=== PATIENT | female | born 1950 | race Caucasian/White ===

== ENCOUNTER 2016-11-08 17:23 | Inpatient (IN) | payer OTHER, MEDICARE ==
[~2016-11-08] VITALS: Ht 160 cm; Wt 74.1 kg
[~2016-11-08 17:23] MED LIST: FEXO180 PO; MONT10TA2 PO; MUCI600T PO; OXYC-360 PO
[2016-11-08 17:28] VITALS: BP 140/87; PULSE 124; RESP 26; TEMP 99.1; O2SAT 89
[2016-11-08 17:43] VITALS: BP 147/72; PULSE 111; PULSE 112; RESP 20; RESP 28; TEMP 100.1; O2SAT 94
[2016-11-08] MEDS ORDERED: cefTRIAXone INJ 2,000 MG in SODIUM CHLORIDE 0.9% INJ 100 ML IV STA (18:05)
[2016-11-08] MEDS ORDERED: AZITHROMYCIN INJ 500 MG in SODIUM CHLOR 0.9% 250 ML INJ 250 ML IV STA (18:05)
[2016-11-08] MEDS ORDERED: ACETAMINOPHEN 325 MG TAB PO ONE (18:15)
[2016-11-08] MEDS: RESP: ALBUTEROL 2.5 MG/IPRATROPIUM 0.5 MG NEB (SCH) INH ×2 (18:16→18:17)
[2016-11-08 18:20] LABS: BASOPHIL # 0.1 TH/MM3 (0-0.2); BASOPHIL % 0.7 % (0.0-2.0); HEMATOCRIT 41.4 % (35.0-46.0); LYMPH % 5.2 % (9.0-44.0); MEAN CELL VOLUME 86.7 FL (80.0-100.0); MEAN CORPUSCULAR HGB CONC 33.4 % (32.0-36.0); MONO % 5.4 % (0.0-8.0); NEUT % 88.7 % (16.0-70.0); PLATELET COUNT 205 TH/MM3 (150-450); RED BLOOD COUNT 4.78 MIL/MM3 (4.00-5.30); RED CELL DISTRIBUTION WIDTH 12.8 % (11.6-17.2); WHITE BLOOD COUNT 19.1 TH/MM3 (4.0-11.0)
--- NOTE | 2016-11-08 18:20 | PD ---
HPI Chief Complaint: Respiratory Symptoms Time Seen by Provider: 18:00 Travel History International Travel<30 days: No Contact w/Intl Traveler<30days: No Traveled to known affect area: No History of Present Illness HPI Patient is a 66-year-old female with history of COPD, bronchiectasis, presents to emergency room with complaints of shortness of breath. Patient reports that she has not been feeling well since last night, reports that she has had a dry, nonproductive cough, reports that she has been feeling weak and has not been able to get out of bed due to his weakness. Denies fevers at home although her temperature today was 100.1. Patient reports that she does not use home O2, reports that she does feel better with oxygen while in the emergency room. Patient denies any sick contacts. Patient reports that her influenza vaccine is not up to date. Patient reports that she was a past smoker, currently doesn' t smoke. Patient denies chest pain at this time. PFSH Past Medical History Arthritis: Yes Asthma: Yes Heart Rhythm Problems: Yes Cancer: No Cardiovascular Problems: No (HX MURMUR) COPD: Yes Diminished Hearing: No Endocrine: No Genitourinary: Yes (INCONTINENCE) Immune Disorder: No Musculoskeletal: Yes Neurologic: Yes Psychiatric: No Reproductive: Yes Respiratory: Yes Migraines: Yes (HX) Influenza Vaccination: No Past Surgical History Abdominal Surgery: Yes (ADHESION REMOVAL, CYST REMOVAL) Hysterectomy: Yes Other Surgery: Yes (BUNIONECTOMY) Social History Alcohol Use: No Tobacco Use: No (QUIT 05/2016) Substance Use: No Allergies-Medications (Allergen,Severity, Reaction): Coded Allergies: Darvon (Verified Allergy, Severe, Itching; NAUSEA AND VOMITING, 11/08/16) Demerol (Verified Allergy, Severe, Confusion; NAUSEA AND VOMITING, 11/08/16) Lortab (Verified Allergy, Severe, 11/08/16) Lyrica (Unverified Allergy, Severe, swelling, 11/08/16) hands, feet, and throat Prednisone (Unverified Allergy, Severe, swelling, 11/08/16) hands, feet, and throat swelled Reported Meds & Prescriptions Reported Meds & Active Scripts Active Reported Percocet (Oxycodone/Acetaminophen) 5 Mg/325 Mg Tab 1-2 Tab PO Q4HPRN FOR PAIN Mucinex (Guaifenesin) 600 Mg Tabcr 800 Mg PO DAILY Hanna (Fexofenadine HCl) 180 Mg Tab 180 Mg PO DAILY Singulair (Montelukast Sodium) 10 Mg Tab 10 Mg PO HS Review of Systems General / Constitutional: Positive: Fever, Chills Eyes: No: Visual changes HENT: No: Headaches Cardiovascular: No: Chest Pain or Discomfort Respiratory: Positive: Cough, Shortness of Breath, Wheezing Gastrointestinal: No: Abdominal Pain Genitourinary: No: Dysuria Musculoskeletal: No: Pain Skin: No Rash Neurologic: Positive: Weakness Psychiatric: No: Depression Endocrine: No: Polydipsia Hematologic/Lymphatic: No: Easy Bruising Physical Exam Narrative GENERAL: Moderate distress SKIN: Focused skin assessment warm/dry. HEAD: Atraumatic. Normocephalic. EYES: Pupils equal and round. No scleral icterus. No injection or drainage. ENT: No nasal bleeding or discharge. Mucous membranes pink and moist. NECK: Trachea midline. No JVD. CARDIOVASCULAR: Tachycardia. No murmur appreciated. RESPIRATORY: No accessory muscle. patient with scattered wheezing to bilateral lungs GASTROINTESTINAL: Abdomen soft, non-tender, nondistended. Hepatic and splenic margins not palpable. MUSCULOSKELETAL: No obvious deformities. No clubbing. No cyanosis. No edema. NEUROLOGICAL: Awake and alert. No obvious cranial nerve deficits. Motor grossly within normal limits. Normal speech. PSYCHIATRIC: Appropriate mood and affect; insight and judgment normal. Data Data Last Documented VS Vital Signs Date Time Temp Pulse Resp B/P Pulse Ox O2 Delivery O2 Flow Rate FiO2 11/08/16 19:02 95 Nasal Cannula 1 11/08/16 19:02 99.2 111 18 139/63 Orders Electrocardiogram (11/08/16 18:05) Complete Blood Count With Diff (11/08/16 18:05) Comprehensive Metabolic Panel (11/08/16 18:05) Prothrombin Time / Inr (Pt) (11/08/16 18:05) Act Partial Throm Time (Ptt) (11/08/16 18:05) Lactic Acid Sepsis Protocol (11/08/16 18:05) Magnesium (Mg) (11/08/16 18:05) Lipase (11/08/16 18:05) Ckmb (Isoenzyme) Profile (11/08/16 18:05) Troponin I (11/08/16 18:05) Urinalysis - C+S If Indicated (11/08/16 18:05) Influenzae A/B Antigen (11/08/16 18:05) Blood Culture (11/08/16 18:05) Chest, Single Ap (11/08/16 18:05) Arterial Blood Gas (Abg) (11/08/16 18:05) Blood Glucose (11/08/16 18:05) Ecg Monitoring (11/08/16 18:05) Iv Access Insert/Monitor (11/08/16 18:05) Oximetry (11/08/16 18:05) Oxygen Administration (11/08/16 18:05) Ceftriaxone Inj (Rocephin Inj) (11/08/16 18:05) Azithromycin Inj (Zithromax Inj) (11/08/16 18:05) Albuterol-Ipratropium Neb (Duoneb Neb) (11/08/16 18:15) Acetaminophen (Tylenol) (11/08/16 18:15) Sodium Chlor 0.9% 1000 Ml Inj (Ns 1000 M (11/08/16 18:30) Sodium Chlor 0.9% 1000 Ml Inj (Ns 1000 M (11/08/16 18:30) Labs Laboratory Tests Test 11/08/16 11/08/16 11/08/16 17:45 18:18 18:40 White Blood Count 19.1 TH/MM3 Red Blood Count 4.78 MIL/MM3 Hemoglobin 13.9 GM/DL Hematocrit 41.4 % Mean Corpuscular Volume 86.7 FL Mean Corpuscular Hemoglobin 29.0 PG Mean Corpuscular Hemoglobin 33.4 % Concent Red Cell Distribution Width 12.8 % Platelet Count 205 TH/MM3 Mean Platelet Volume 8.8 FL Neutrophils (%) (Auto) 88.7 % Lymphocytes (%) (Auto) 5.2 % Monocytes (%) (Auto) 5.4 % Eosinophils (%) (Auto) 0.0 % Basophils (%) (Auto) 0.7 % Neutrophils # (Auto) 17.0 TH/MM3 Lymphocytes # (Auto) 1.0 TH/MM3 Monocytes # (Auto) 1.0 TH/MM3 Eosinophils # (Auto) 0.0 TH/MM3 Basophils # (Auto) 0.1 TH/MM3 CBC Comment AUTO DIFF Differential Comment AUTO DIFF CONFIRMED Platelet Estimate NORMAL Platelet Morphology Comment NORMAL Red Cell Morphology Comment NORMAL Prothrombin Time 11.6 SEC Prothromb Time International 1.0 RATIO Ratio Activated Partial 32.1 SEC Thromboplast Time Sodium Level 137 MEQ/L Potassium Level 4.1 MEQ/L Chloride Level 99 MEQ/L Carbon Dioxide Level 24.1 MEQ/L Anion Gap 14 MEQ/L Blood Urea Nitrogen 13 MG/DL Creatinine 0.86 MG/DL Estimat Glomerular Filtration 66 ML/MIN Rate Random Glucose 116 MG/DL Calcium Level 9.4 MG/DL Magnesium Level 1.9 MG/DL Total Bilirubin 1.5 MG/DL Aspartate Amino Transf 15 U/L (AST/SGOT) Alanine Aminotransferase 10 U/L (ALT/SGPT) Alkaline Phosphatase 93 U/L Total Creatine Kinase 95 U/L Troponin I LESS THAN 0.02 NG/ML Total Protein 8.1 GM/DL Albumin 3.2 GM/DL Lipase 91 U/L Lactic Acid Level 1.0 mmol/L Blood Gas Puncture Site LT RADIAL Blood Gas Patient Temperature 98.6 Blood Gas HCO3 23 mmol/L Blood Gas Base Excess 0.0 mmol/L Blood Gas Oxygen Saturation 90 % Arterial Blood pH 7.47 Arterial Blood Partial 32 mmHG Pressure CO2 Arterial Blood Partial 61 mmHG Pressure O2 Arterial Blood Oxygen Content 17.2 Vol % Arterial Blood 3.0 % Carboxyhemoglobin Arterial Blood Methemoglobin 1.0 % Blood Gas Hemoglobin 13.7 G/DL Oxygen Delivery Device ROOM AIR Blood Gas Inspired Oxygen 21 % [facility] Medical Decision Making Medical Screen Exam Complete: Yes Emergency Medical Condition: Yes Interpretation(s) EKG at 1808: Sinus tach at 110bpm, qt/qtc: 298/385, no acute st or t wave changes Vital Signs Date Time Temp Pulse Resp B/P Pulse Ox O2 Delivery O2 Flow Rate FiO2 11/08/16 17:43 100.1 112 28 147/72 94 Nasal Cannula 1 11/08/16 17:43 114 11/08/16 17:28 99.1 124 26 140/87 89 Differential Diagnosis Pneumonia, influenza, PE, ACS, COPD exacerbation Narrative Course Patient is a 66-year-old female who presents to emergency room with complaints of not feeling well since last night. Patient reports that she has had a nonproductive cough, generalized weakness, myalgias and shortness of breath since last night. Patient reports that she has been unable to get out of bed secondary to her weakness. Patient reports no sick contacts at home. Vital Signs Date Time Temp Pulse Resp B/P Pulse Ox O2 Delivery O2 Flow Rate FiO2 11/08/16 17:43 100.1 112 28 147/72 94 Nasal Cannula 1 11/08/16 17:43 114 11/08/16 17:28 99.1 124 26 140/87 89 Upon presentation to the emergency room, patient is tachycardic, febrile with increased respiratory rate. She does meet SIRS criteria, labs including lactic acidosis, blood cultures, fluid bolus and antibiotics ordered. Patient is wheezing on exam, plan to give her DuoNeb's. Patient's pulse ox was 89% initially on room air, she does not use home O2. We'll continue to monitor patient on the pulse oximeter. ABG ordered Laboratory Tests Test 11/08/16 11/08/16 11/08/16 17:45 18:18 18:40 White Blood Count 19.1 TH/MM3 (4.0-11.0) Red Blood Count 4.78 MIL/MM3 (4.00-5.30) Hemoglobin 13.9 GM/DL (11.6-15.3) Hematocrit 41.4 % (35.0-46.0) Mean Corpuscular Volume 86.7 FL (80.0-100.0) Mean Corpuscular Hemoglobin 29.0 PG (27.0-34.0) Mean Corpuscular Hemoglobin 33.4 % Concent (32.0-36.0) Red Cell Distribution Width 12.8 % (11.6-17.2) Platelet Count 205 TH/MM3 (150-450) Mean Platelet Volume 8.8 FL (7.0-11.0) Neutrophils (%) (Auto) 88.7 % (16.0-70.0) Lymphocytes (%) (Auto) 5.2 % (9.0-44.0) Monocytes (%) (Auto) 5.4 % (0.0-8.0) Eosinophils (%) (Auto) 0.0 % (0.0-4.0) Basophils (%) (Auto) 0.7 % (0.0-2.0) Neutrophils # (Auto) 17.0 TH/MM3 (1.8-7.7) Lymphocytes # (Auto) 1.0 TH/MM3 (1.0-4.8) Monocytes # (Auto) 1.0 TH/MM3 (0-0.9) Eosinophils # (Auto) 0.0 TH/MM3 (0-0.4) Basophils # (Auto) 0.1 TH/MM3 (0-0.2) CBC Comment AUTO DIFF Differential Comment AUTO DIFF CONFIRMED Platelet Estimate NORMAL (NORMAL) Platelet Morphology Comment NORMAL (NORMAL) Red Cell Morphology Comment NORMAL (NORMAL) Prothrombin Time 11.6 SEC (9.8-11.6) Prothromb Time International 1.0 RATIO Ratio Activated Partial 32.1 SEC Thromboplast Time (24.3-30.1) Sodium Level 137 MEQ/L (136-145) Potassium Level 4.1 MEQ/L (3.5-5.1) Chloride Level 99 MEQ/L (98-107) Carbon Dioxide Level 24.1 MEQ/L (21.0-32.0) Anion Gap 14 MEQ/L (5-15) Blood Urea Nitrogen 13 MG/DL (7-18) Creatinine 0.86 MG/DL (0.50-1.00) Estimat Glomerular Filtration 66 ML/MIN (>89) Rate Random Glucose 116 MG/DL (74-106) Calcium Level 9.4 MG/DL (8.5-10.1) Magnesium Level 1.9 MG/DL (1.5-2.5) Total Bilirubin 1.5 MG/DL (0.2-1.0) Aspartate Amino Transf 15 U/L (15-37) (AST/SGOT) Alanine Aminotransferase 10 U/L (10-53) (ALT/SGPT) Alkaline Phosphatase 93 U/L (45-117) Total Creatine Kinase 95 U/L (26-192) Troponin I LESS THAN 0.02 NG/ML (0.02-0.05) Total Protein 8.1 GM/DL (6.4-8.2) Albumin 3.2 GM/DL (3.4-5.0) Lipase 91 U/L (73-393) Lactic Acid Level 1.0 mmol/L (0.4-2.0) Blood Gas Puncture Site LT RADIAL Blood Gas Patient Temperature 98.6 Blood Gas HCO3 23 mmol/L (22-26) Blood Gas Base Excess 0.0 mmol/L (-2-2) Blood Gas Oxygen Saturation 90 % (90-100) Arterial Blood pH 7.47 (7.380-7.420) Arterial Blood Partial 32 mmHG (38-42) Pressure CO2 Arterial Blood Partial 61 mmHG Pressure O2 (61-120) Arterial Blood Oxygen Content 17.2 Vol % (12.0-20.0) Arterial Blood 3.0 % (0-4) Carboxyhemoglobin Arterial Blood Methemoglobin 1.0 % (0-2) Blood Gas Hemoglobin 13.7 G/DL (12.0-16.0) Oxygen Delivery Device ROOM AIR Blood Gas Inspired Oxygen 21 % Last Impressions Chest X-Ray 11/08/16 1805 Signed Impressions: Service Date/Time: Tuesday, November 08, 2016 18:27 - CONCLUSION: Findings suggest right perihilar and left lower lateral lung infiltrates. Saúl Boyd MD Microbiology Date/Time Procedure Status Source Growth 11/08/16 17:45 Aerobic Blood Culture Received Blood Peripheral Pending 11/08/16 17:45 Anaerobic Blood Culture Received Blood Peripheral Pending 11/08/16 18:18 Aerobic Blood Culture Received Blood Peripheral Pending 11/08/16 18:18 Anaerobic Blood Culture Received Blood Peripheral Pending 11/08/16 18:18 Influenza Types A,B Antigen (EDD) - Final Complete Nasal Aspirate NEGATIVE FOR FLU A AND B ANTIGEN.... Patient with a white blood cell count 19.1 with shift, lactic acid 1.0, xray of chest with right perihilar and left lower lateral lung infiltrates Patient will require admission for hypoxia with multilobar pneumonia. Critical Care Narrative Aggregate critical care time was 30 minutes. Time to perform other separately billable procedures was not included in the critical care time. My time did not include minutes spent treating any other patients simultaneously or on activities that did not directly contribute to the patient's treatment. The services I provided to this patient were to treat and/or prevent clinically significant deterioration that could result in: , decompensation, deterioration I provided critical care services requiring my management, as noted below: Chart data review, documentation time, medication orders and management, vital sign assessments/reviewing monitor data, ordering and reviewing lab tests, ordering and interpreting/reviewing x-rays and diagnostic studies, care of the patient and discussion of the patient with the admitting physicians. Sepsis Criteria SIRS Criteria (2 or more): Heart rate over 90, RR > 20 or PaCO2 < 32 Sepsis Criteria (SIRS+source): Infect source susp/known Physician Communication Physician Communication Dr. Sullivan Diagnosis Primary Impression: Hypoxia Additional Impressions: SIRS (systemic inflammatory response syndrome) multilobar pneumonia Admitting Information Admitting Physician Requests: Admit Trinidad Crook DO Nov 08, 2016 18:20
[2016-11-08 18:23] LABS: HEMO FLAGS AUTO DIFF
[2016-11-08] MEDS ORDERED: SODIUM CHLOR 0.9% 1000 ML INJ 1,000 ML IV ONE ×2 (18:30)
[2016-11-08 18:34] LABS: CHLORIDE 99 MEQ/L (98-107); POTASSIUM 4.1 MEQ/L (3.5-5.1); SODIUM (NA) 137 MEQ/L (136-145)
[2016-11-08 18:38] LABS: ANION GAP 14 MEQ/L (5-15); BICARBONATE 24.1 MEQ/L (21.0-32.0); BLOOD UREA NITROGEN 13 MG/DL (7-18); MAGNESIUM 1.9 MG/DL (1.5-2.5)
[2016-11-08 18:39] LABS: APTT (PATIENT) 32.1 SEC (24.3-30.1); PROTHROMBIN TIME - PATIENT 11.6 SEC (9.8-11.6)
[2016-11-08 18:40] LABS: ALT (GPT) 10 U/L (10-53); AST (GOT) 15 U/L (15-37)
[2016-11-08 18:41] LABS: GLOMERULAR FILTRATION RATE 66 ML/MIN (>89)
[2016-11-08 18:42] LABS: TOTAL BILIRUBIN ADULT 1.5 MG/DL (0.2-1.0)
[2016-11-08 18:43] LABS: ALKALINE PHOSPHATASE 93 U/L (45-117)
[2016-11-08 18:47] LABS: BLOOD GAS HCO3 23 mmol/L (22-26); BLOOD GAS O2 HGB SATURATION 90 % (90-100); BLOOD GAS OXYGEN CONTENT 17.2 Vol % (12.0-20.0); BLOOD GAS PCO2 32 mmHG (38-42); BLOOD GAS PO2 61 mmHG (61-120); BLOOD GAS TOTAL HGB 13.7 G/DL (12.0-16.0); CRITICAL VALUE NO; FIO2 21 %; OXYGEN DEVICE ROOM AIR; TEMP CORR TO 98.6
[2016-11-08 18:48] LABS: DRAW SITE LT RADIAL; NUMBER OF ARTERIAL PUNCTURES 1; STAT YES; ULNAR PULSE PRESENT
[2016-11-08 18:54] LABS: PLATELET ESTIMATE SMEAR NORMAL (NORMAL); PLATELET MORPHOLOGY NORMAL (NORMAL); SCAN/DIFF AUTO DIFF CONFIRMED
[2016-11-08 19:02] VITALS: BP 139/63; PULSE 111; RESP 18; TEMP 99.2; O2SAT 95
--- NOTE | 2016-11-08 19:09 | RADHPO ---
EXAM DATE/TIME: 11/08/2016 18:27 [place] COMPARISON: No previous studies available for comparison. INDICATIONS : Short of breath, fever, cough, chest pains MEDICAL HISTORY : Chronic obstructive pulmonary disease. SURGICAL HISTORY : None. ENCOUNTER: Initial ACUITY: 2 days PAIN SCORE: 7/10 LOCATION: Bilateral chest FINDINGS: Frontal view of the chest demonstrates indistinctness and opacity in the right perihilar region sugge sting perihilar infiltrate. The central bronchopulmonary markings the left side a well delineated. No peripheral filtrate is seen in the right lung. There is a questionable opacity in the left costop hrenic angle. Both hemidiaphragms are well delineated. The heart is normal size. CONCLUSION: Findings suggest right perihilar and left lower lateral lung infiltrates. Saúl Boyd MD on November 08, 2016 at 19:07 Board Certified Radiologist. This report was verified electronically.
[2016-11-08 19:11] LABS: CREATINE KINASE 95 U/L (26-192)
[2016-11-08 20:00] VITALS: BP 114/59; PULSE 94; RESP 20; TEMP 97.2; O2SAT 96
[2016-11-08] MEDS ORDERED: MONT10TA2 PO (20:06)
[2016-11-08] MEDS ORDERED: MUCI600T PO (20:06)
[2016-11-08] MEDS ORDERED: NALOXONE HCL 0.4 MG/ML AMP IV PRN (20:15)
[2016-11-08] MEDS ORDERED: ACETAMINOPHEN 325 MG TAB PO PRN (20:15)
[2016-11-08] MEDS ORDERED: ONDANSETRON HCL 4 MG/2 ML VIAL IVP PRN (20:15)
[2016-11-08] MEDS ORDERED: SODIUM CHLORIDE 0.9% FLUSH 10 ML FLUSH IV FLUSH PRN (20:15)
[2016-11-08 20:41] VITALS: BP 127/60
[2016-11-08] MEDS: SODIUM CHLORIDE 0.9% FLUSH 10 ML FLUSH IV FLUSH SCH (21:00)
[2016-11-08] MEDS: HEPARIN SODIUM - SQ 10,000 UNITS/ML VIAL SQ SCH (21:00)
[2016-11-08] MEDS: MONTELUKAST SODIUM 10 MG TAB PO SCH (22:46)
[2016-11-08 22:50] VITALS: PULSE 93
[2016-11-08 23:36] LABS: GLUCOSE,URINE NEG (NEG); KETONE, URINE 15 mg/dL (NEG); PH, URINE 5.5 (5.0-8.5)
[2016-11-08 23:44] LABS: BLOOD, URINE MOD (NEG); NITRITE,URINE POS (NEG)
[2016-11-08 23:48] LABS: URINE COLOR YELLOW (YELLW/STRAW)
[2016-11-08 23:49] LABS: MUCUS URINE FEW /lpf (OCC); SQUAMOUS EPITHELIAL CELL URINE 0-5 /hpf (0-5); TRANSITIONAL EPI CELLS, URINE 0-5 /hpf
[2016-11-08 23:50] LABS: COMMENT (UR) CULTURE INDICATED; CULTURE IF INDICATED CULTURE INDICATED
--- NOTE | 2016-11-08 23:50 | EKG ---
Date Performed: 11/08/2016 Time Performed: 18:08:56 PTAGE: 66 years EKG: Sinus tachycardia rSr'(V1) - probable normal variant Anterior T wave changes are nonspecifi c Borderline ECG PREVIOUS TRACING : 05/07/2011 15.39 DOCTOR: Arabella Gonzalez Interpretating Date/Time 11/08/2016 23:48:55
[2016-11-09] VITALS (8 sets, daily range): BP systolic 112–142; BP diastolic 64–81; PULSE 77–96; RESP 18–20; TEMP 97.1–98.4; O2SAT 95–98
[2016-11-09 07:30] LABS: AUTOMATED NEUTROPHIL # 10.8 TH/MM3 (1.8-7.7); BASOPHIL % 0.2 % (0.0-2.0); EOSINOPHIL % 0.1 % (0.0-4.0); HEMATOCRIT 35.1 % (35.0-46.0); HEMO FLAGS DIFF FINAL; LYMPH % 9.6 % (9.0-44.0); LYMPHOCYTE # 1.3 TH/MM3 (1.0-4.8); MEAN CELL VOLUME 87.7 FL (80.0-100.0); MEAN CORPUSCULAR HEMOGLOBIN 29.8 PG (27.0-34.0); MEAN CORPUSCULAR HGB CONC 33.9 % (32.0-36.0); NEUT % 83.1 % (16.0-70.0); PLATELET COUNT 182 TH/MM3 (150-450); RED BLOOD COUNT 4.01 MIL/MM3 (4.00-5.30); RED CELL DISTRIBUTION WIDTH 12.6 % (11.6-17.2)
[2016-11-09 07:57] LABS: BICARBONATE 27.2 MEQ/L (21.0-32.0); POTASSIUM 3.7 MEQ/L (3.5-5.1)
[2016-11-09] MEDS: guaiFENesin E.R. 600 MG TAB PO SCH (08:16)
[2016-11-09] MEDS: HEPARIN SODIUM - SQ 10,000 UNITS/ML VIAL SQ SCH ×2 (08:17→22:06)
[2016-11-09] MEDS: SODIUM CHLORIDE 0.9% FLUSH 10 ML FLUSH IV FLUSH SCH ×2 (08:20→22:40)
[2016-11-09] MEDS: PANTOPRAZOLE SOD 40 MG DELAYED RELEASE TAB PO SCH (12:49)
--- NOTE | 2016-11-09 15:56 | MH ---
cc: GREGG MENDEZ MD DATE OF ADMISSION 11/08/2016 CHIEF COMPLAINT Cough, shortness of breath. HISTORY OF PRESENT ILLNESS This is a 66-year-old female with past medical-surgical history significant for arthritis, asthma, history of heart murmur, urinary incontinence, migraine headache, cyst removal, bunionectomy, hysterectomy who came to the ER at [facility] complaining of shortness of breath. Has a history of COPD. The patient reports that she has not been feeling well since last night and reports that she has had a dry nonproductive cough. Reports that she has been feeling weak and tired and not able to get out of the bed due to this weakness. Denies any chest pain. Had a home temperature of 100.1. She feels better while she was given oxygen. She denies any sick contacts. She reports that her influenza vaccination is up-to-date. She is an ex-smoker and denies any smoking now. Other than that nothing significant. PAST MEDICAL AND SURGICAL HISTORY As dictated above. SOCIAL HISTORY Ex-smoker, denies any alcohol or drug abuse. Lives at home. FAMILY HISTORY Nothing significant. ALLERGIES DARVON, DEMEROL, LORTAB, LYRICA, PREDNISONE. MEDICATIONS Include: 1. Mucinex. 2. Hanna. 3. Singulair. REVIEW OF SYSTEMS Positive for shortness of breath, cough. All other review of systems negative. PHYSICAL EXAMINATION GENERAL: This is a 66-year female laying on the bed not in acute distress. VITAL SIGNS: Temperature 97.1, heart rate 90, respirations 18, blood pressure 142/81, O2 saturation 95% O2 nasal cannula. HEENT: Normocephalic, atraumatic. EOMI. Pupils equal, round and reactive to light. Oral mucosa moist. NECK: Supple. No visible thyromegaly or neck mass. Trachea central. CARDIOVASCULAR: Regular rate and rhythm. LUNGS: Respirations clear to auscultation. Bilateral mild wheezing. ABDOMEN: Soft and nontender. Bowel sounds audible. EXTREMITIES: No cyanosis or clubbing. Full range of motion of all extremities. NEUROLOGIC: Awake, alert, oriented x4. No focal deficits. SKIN: Warm and dry. PSYCHIATRIC: The patient is cooperative. Mood and affect are normal. LABORATORY DATA Include CBC totally unremarkable except for WBC count was 19.1 now it is 13.0. Neutrophils 83.1 high. ABG done showed pH of 7.47, pCO2 of 32, pO2 61 with carboxyhemoglobin 3.0. BMP totally unremarkable except for glucose 116 high, lactic acid level 1.0, calcium 8.5, total bilirubin 1.5. LFTs are normal. Troponin I less than 0.02. Albumin 3.2 low, total protein 8.1, lipase 91. PT 11.6, INR 1.0, PTT 32.1. Urine examination done showed wbc's 25-49 with a urine white blood cell clumps few, moderate occult blood, positive nitrite, leukocyte esterase small. Culture indicated. Influenza A and B negative. Blood cultures x2 done negative so far. Urine culture negative so far. IMAGING Chest x-ray was done and shows findings suggest high perihilar and left lower lateral lung infiltrate. ASSESSMENT/PLAN This is a 66-year female who came to the ER diagnosed with: 1. Shortness of breath most likely secondary to pneumonia / CHF exacerbation. The patient on Zithromax 500 mg IV daily and Rocephin 1 gram IV daily. I will start the patient on DuoNeb nebulization q.6h p.r.n. We will monitor the patient. 2. History of COPD. Continue home medication. 3. DVT prophylaxis. Heparin 5000 units subcutaneous twice a day. 4. GI prophylaxis. Protonix 40 mg p.o. daily. 5. We are going to manage the patient on a daily basis and make recommendations on a daily basis. Gregg Mendez MD EA/CURLY /12:11 PM /3:36 PM
[2016-11-09] MEDS ORDERED: cefTRIAXone INJ 1,000 MG in SODIUM CHLORIDE 0.9% INJ 100 ML IV SCH (18:00)
[2016-11-09] MEDS ORDERED: AZITHROMYCIN INJ 500 MG in SODIUM CHLOR 0.9% 250 ML INJ 250 ML IV SCH (20:00)
[2016-11-09] MEDS: MONTELUKAST SODIUM 10 MG TAB PO SCH (22:06)
[2016-11-10] VITALS: BP 139/82; PULSE 79; RESP 20; TEMP 98.6; O2SAT 98
[2016-11-10 04:00] VITALS: BP 139/85; PULSE 74; RESP 20; TEMP 97.7; O2SAT 95
[2016-11-10 07:19] LABS: AUTOMATED NEUTROPHIL # 4.3 TH/MM3 (1.8-7.7); BASOPHIL % 0.3 % (0.0-2.0); EOSINOPHIL # 0.1 TH/MM3 (0-0.4); EOSINOPHIL % 1.3 % (0.0-4.0); HEMATOCRIT 35.5 % (35.0-46.0); HEMO FLAGS DIFF FINAL; LYMPH % 21.6 % (9.0-44.0); LYMPHOCYTE # 1.4 TH/MM3 (1.0-4.8); MEAN CORPUSCULAR HEMOGLOBIN 30.2 PG (27.0-34.0); MEAN CORPUSCULAR HGB CONC 33.9 % (32.0-36.0); NEUT % 66.8 % (16.0-70.0); PLATELET COUNT 187 TH/MM3 (150-450); RED BLOOD COUNT 3.98 MIL/MM3 (4.00-5.30); RED CELL DISTRIBUTION WIDTH 13.2 % (11.6-17.2); WHITE BLOOD COUNT 6.4 TH/MM3 (4.0-11.0)
[2016-11-10 07:28] LABS: CHLORIDE 106 MEQ/L (98-107); POTASSIUM 3.6 MEQ/L (3.5-5.1); SODIUM (NA) 143 MEQ/L (136-145)
[2016-11-10 07:39] LABS: ANION GAP 9 MEQ/L (5-15); BICARBONATE 28.4 MEQ/L (21.0-32.0)
[2016-11-10 07:47] LABS: ALKALINE PHOSPHATASE 77 U/L (45-117); ALT (GPT) 9 U/L (10-53); AST (GOT) 11 U/L (15-37); BLOOD UREA NITROGEN 9 MG/DL (7-18); GLOMERULAR FILTRATION RATE 110 ML/MIN (>89); TOTAL BILIRUBIN ADULT 0.5 MG/DL (0.2-1.0)
[2016-11-10 08:00] VITALS: BP 122/87; PULSE 82; RESP 20; TEMP 97.7; O2SAT 94
--- NOTE | 2016-11-10 08:10 | HHI.PR ---
Subjective History of Present Illness Patient feel a lot better no acute issue wants to go home today cough better d/ w OLIVIA Hernandez. Review of Systems Constitutional Constitutional: Fatigue Pulmonary Respiratory: Coughing Vitals/Results Intake & Output 11/09/16 11/09/16 11/10/16 15:00 23:00 07:00 Intake Total 960 ml 60 ml Balance 960 ml 60 ml Intake Oral 960 ml 60 ml # Voids 4 1 1 # Bowel Movements 1 0 Vital Signs Vital Signs Date Time Temp Pulse Resp B/P Pulse Ox O2 Delivery O2 Flow Rate FiO2 11/10/16 04:00 97.7 74 20 139/85 95 11/10/16 00:00 98.6 79 20 139/82 98 11/09/16 20:30 93 11/09/16 20:00 98.4 79 20 140/71 98 11/09/16 16:00 97.7 78 18 120/80 97 11/09/16 12:00 98.0 77 19 118/73 96 11/09/16 08:45 95 Nasal Cannula 2.00 CBC/BMP: 11/10/16 0655 11/10/16 0655 Lab Results Laboratory Tests Test 11/10/16 06:55 White Blood Count 6.4 TH/MM3 Red Blood Count 3.98 MIL/MM3 Hemoglobin 12.0 GM/DL Hematocrit 35.5 % Mean Corpuscular Volume 89.0 FL Mean Corpuscular Hemoglobin 30.2 PG Mean Corpuscular Hemoglobin 33.9 % Concent Red Cell Distribution Width 13.2 % Platelet Count 187 TH/MM3 Mean Platelet Volume 8.1 FL Neutrophils (%) (Auto) 66.8 % Lymphocytes (%) (Auto) 21.6 % Monocytes (%) (Auto) 10.0 % Eosinophils (%) (Auto) 1.3 % Basophils (%) (Auto) 0.3 % Neutrophils # (Auto) 4.3 TH/MM3 Lymphocytes # (Auto) 1.4 TH/MM3 Monocytes # (Auto) 0.6 TH/MM3 Eosinophils # (Auto) 0.1 TH/MM3 Basophils # (Auto) 0.0 TH/MM3 CBC Comment DIFF FINAL Differential Comment Sodium Level 143 MEQ/L Potassium Level 3.6 MEQ/L Chloride Level 106 MEQ/L Carbon Dioxide Level 28.4 MEQ/L Anion Gap 9 MEQ/L Blood Urea Nitrogen 9 MG/DL Creatinine 0.55 MG/DL Estimat Glomerular Filtration 110 ML/MIN Rate Random Glucose 97 MG/DL Calcium Level 8.7 MG/DL Total Bilirubin 0.5 MG/DL Aspartate Amino Transf 11 U/L (AST/SGOT) Alanine Aminotransferase 9 U/L (ALT/SGPT) Alkaline Phosphatase 77 U/L Total Protein 6.8 GM/DL Albumin 2.6 GM/DL Physical Exam General General Appearance: Well Developed, Well Nourished, No Acute Distress, Comfortable Eyes Eye Exam: Pupils Equal, Pupils Reactive, Sclera White, Extraocular Movement Intact Throat Throat Exam: Oral Mucosa [place] & Moist, Oral Pharynx Normal Neck Neck Exam: Neck Supple, Trachea Midline Pulmonary Resp Exam: Clear Bilaterally, Breath Sounds Equal, No Distress Cardiology CV Exam: Regular, Normal Sinus Rhythm Gastrointestinal/Abdomen GI Exam: Soft, Non-Tender, Bowel Sounds Present Musculoskeletal MS Exam: Normal Tone Integumentary Skin Exam: Clear, Warm, Dry, Intact Extremeties Extremities Exam: No Edema Neurologic Neuro Exam: Alert, Awake, Oriented, Speech Clear, Moving All Extremities, No Focal Deficits Psychiatric Psych Exam: Appropriate Responses PUD Prophylasis PUD Prophylaxis: Protonix Assessment/Plan Assessment/Plan ASSESSMENT/PLAN This is a 66-year female who came to the ER diagnosed with: 1. Shortness of breath most likely secondary to pneumonia / CHF exacerbation. The patient on Zithromax 500 mg IV daily and Rocephin 1 gram IV daily. The patient on DuoNeb nebulization q.6h p.r.n. We will monitor the patient. 2. History of COPD. Continue home medication. 3. DVT prophylaxis. Heparin 5000 units subcutaneous twice a day. 4. GI prophylaxis. Protonix 40 mg p.o. daily. ok to dc home today. f/u with PCP 1 week. condition at discharge good. Activity as tolerated diet cardiac. medicine see discharge medicine list. Discussed Condition with: Patient Gregg Montague MD Nov 10, 2016 08:10
[2016-11-10] MEDS: HEPARIN SODIUM - SQ 10,000 UNITS/ML VIAL SQ SCH (09:00)
[2016-11-10] MEDS: SODIUM CHLORIDE 0.9% FLUSH 10 ML FLUSH IV FLUSH SCH (10:02)
[2016-11-10] MEDS: PANTOPRAZOLE SOD 40 MG DELAYED RELEASE TAB PO SCH (10:04)
[2016-11-10] MEDS: guaiFENesin E.R. 600 MG TAB PO SCH (10:04)
[2016-11-10] MEDS ORDERED: ZITH250T PO (10:09)
[2016-11-10] MEDS ORDERED: CEFT500T3 PO (10:09)
== END 2016-11-10 10:47 | disposition home or self-care (01) | DRG 194 ==
LOC: PHED 17:23 → PHEDA 19:38 → PH3A 20:35
PROVIDERS: ADMIT Family Medicine; ATTEND Family Medicine
DX: J18.9 Pneumonia, unspecified organism (principal); J44.0 Chronic obstructive pulmonary disease with (acute) lower respiratory infection; I50.9 Heart failure, unspecified; J45.909 Unspecified asthma, uncomplicated; R01.1 Cardiac murmur, unspecified; R32 Unspecified urinary incontinence; M19.90 Unspecified osteoarthritis, unspecified site; G43.909 Migraine, unspecified, not intractable, without status migrainosus; Z87.891 Personal history of nicotine dependence
CPT/HCPCS: 36600; 71010; 80048; 80053; 81001; 82550; 82805; 83605; 83690; 83735; 84484; 85025; 85610; 85730; 87040; 87086; 87804; 93005; 94640; 94664; 96365; 96368; J0456; J0696; J1644; J7030; J7050